=== PATIENT | male | born 1985 | race Caucasian/White ===

== ENCOUNTER 2018-06-25 11:50 | Emergency (ER) | payer SELFPAY ==
[~2018-06-25] VITALS: Ht 170.2 cm; Wt 81.4 kg
[2018-06-25] MEDS ORDERED: METF-960 PO (12:51)
[2018-06-25 12:52] VITALS: BP 138/92
[2018-06-25 13:04] LABS: GLUCOSE,POINT OF CARE 86 MG/DL (70-110)
[2018-06-25] MEDS ORDERED: HYDROCODONE/ACETAMINOPHEN 5-325 MG TABLET PO ONE (13:15)
[2018-06-25] MEDS ORDERED: POVIDONE-IODINE 10% 15 ML SOLUTION UD TP ONE (14:15)
[2018-06-25] MEDS ORDERED: BUPIVACAINE HCL 0.25% 50 ML VIAL INJ ONE (14:15)
[2018-06-25] MEDS ORDERED: BACITRACIN 0.9 GM PACKET OINTMENT TP ONE (14:15)
== END 2018-06-25 15:27 | disposition home or self-care (01) ==
LOC: EMS 11:52
DX: S62.613A Displaced fracture of proximal phalanx of left middle finger, initial encounter for closed fracture (principal); E11.9 Type 2 diabetes mellitus without complications; Z79.84 Long term (current) use of oral hypoglycemic drugs; W23.0XXA Caught, crushed, jammed, or pinched between moving objects, initial encounter; Y93.89 Activity, other specified; Y92.89 Other specified places as the place of occurrence of the external cause; Y99.8 Other external cause status
CPT/HCPCS: 26770; 73140; 82962; 99284; J3490